=== PATIENT | male | born 1960 | race Caucasian/White ===

== ENCOUNTER → 2017-03-09 | Outpatient (CLI) | payer BC | END | disposition home or self-care (01) | LOC: LABWHC1 09:16 | PROVIDERS: ATTEND Radiology Radiation Oncology | DX: C61 Malignant neoplasm of prostate (principal) | CPT/HCPCS: 36415; 84153 ==

== ENCOUNTER → 2017-08-10 | Outpatient (CLI) | payer BC | END | disposition home or self-care (01) | LOC: LABWHC1 09:54 | PROVIDERS: ATTEND Radiology Radiation Oncology | DX: C61 Malignant neoplasm of prostate (principal) | CPT/HCPCS: 36415; 84153 ==

== ENCOUNTER → 2018-02-26 | Outpatient (CLI) | payer BC | END | disposition home or self-care (01) | LOC: LABWHC1 12:40 | PROVIDERS: ATTEND Radiology Radiation Oncology | DX: C61 Malignant neoplasm of prostate (principal) | CPT/HCPCS: 36415; 84153 ==

== ENCOUNTER → 2018-04-12 | Outpatient (CLI) | payer BC ==
--- NOTE | 2018-04-12 09:14 | CTL ---
EXAMINATION TYPE: CT Low Dose Lung DATE OF EXAM ORDERED: 04/12/2018 COMPARISON: HISTORY: . Low Dose CT Lung Screening CT DLP: 113.[address] CTDI: 3.00 mGy IV CONTRAST USED: None. SCREENING VISIT: First visit COMPARISON: None. TECHNIQUE: Low dose computed tomography scan was performed through the chest at 1 millimeter thick se ctions and reconstructed images in the coronal plane at [address] DIAGNOSTIC QUALITY: Satisfactory FINDINGS: LUNG NODULES: Not present Left lung: no nodules identified. Right lung: no nodules identified. LUNGS: COPD: Severity: None Fibrosis: Severity:None Lymph nodes: None Other findings: None RIGHT PLEURAL SPACE: Effusion: None Calcification: None Thickening: None Pneumothorax: None LEFT PLEURAL SPACE: Effusion: None Calcification: None Thickening: None Pneumothorax: None HEART: Heart Size: Mildly enlarged Coronary calcification: Mild Pericardial effusion: None OTHER FINDINGS: Upper abdomen: No significant abnormality Bony thorax: Degenerative changes Supraclavicular region: No significant abnormalityOther: No significant abnormalityI IMPRESSION: Negative FOLLOW UP CT CHEST RECOMMENDATION: Follow-up screening in one year CT LUNG RAD: LUNG RAD CATEGORY 1 negative
== END | disposition home or self-care (01) ==
LOC: RADCTMAIN 08:36
PROVIDERS: ATTEND Radiology Radiation Oncology
DX: Z12.2 Encounter for screening for malignant neoplasm of respiratory organs (principal); Z87.891 Personal history of nicotine dependence

== ENCOUNTER → 2018-08-16 | Outpatient (CLI) | payer BC ==
[2018-08-16 10:27] LABS: Basophils # (A) 0.1 k/uL (0-0.2); Basophils % (A) 1 %; Eosinophils # (A) 0.3 k/uL (0-0.7); Eosinophils % (A) 5 %; HCT 44.2 % (39.0-53.0); HGB 14.5 gm/dL (13.0-17.5); Lymphocytes # (A) 1.3 k/uL (1.0-4.8); Lymphocytes % (A) 24 %; MCH 28.3 pg (25.0-35.0); MCHC 32.9 g/dL (31.0-37.0); MCV 85.9 fL (80.0-100.0); Mean Platelet Volume 7.8; Monocytes # (A) 0.3 k/uL (0-1.0); Monocytes % (A) 6 %; Neutrophils # (A) 3.4 k/uL (1.3-7.7); Neutrophils % (A) 64 %; Platelet Count 166 k/uL (150-450); RBC 5.15 m/uL (4.30-5.90); RDW 14.1 % (11.5-15.5); WBC 5.3 k/uL (3.8-10.6)
[2018-08-16 18:02] LABS: Anion Gap 10.8 mmol/L (4.00-12.00); Calcium 9.1 mg/dL (8.7-10.3); Carbon Dioxide 23.2 mmol/L (21.6-31.8); Potassium 4.1 mmol/L (3.5-5.5)
== END | disposition home or self-care (01) ==
LOC: LABWHC1 09:43
PROVIDERS: ATTEND Radiology Radiation Oncology
DX: C61 Malignant neoplasm of prostate (principal); Z87.891 Personal history of nicotine dependence; Z92.3 Personal history of irradiation
CPT/HCPCS: 36415; 80048; 84153; 85025

== ENCOUNTER → 2018-09-20 | Outpatient (CLI) | payer BC ==
--- NOTE | 2018-09-20 14:50 | CT ---
EXAMINATION TYPE: CT urogram wo/w con DATE OF EXAM: 09/20/2018 COMPARISON: None HISTORY: Gross hematuria. CT DLP: 1275.5 mGycm, Automated Exposure Control for Dose Reduction was Utilized. CONTRAST: CT scan of the abdomen and pelvis is performed with oral and without and with IV Contrast, patient in jected with 100ml mL of Isovue 300. FINDINGS: LUNG BASES: No significant abnormality is appreciated. LIVER/GB: Too small to accurately characterize hepatic lesion near the fissure for the falciform liga ment as seen on series 6 image 13 that is very hypoattenuated favored to represent a small benign cys t. No cholelithiasis on the unenhanced images PANCREAS: There is severe pancreatic parenchymal atrophy. No ductal dilatation is noted. SPLEEN: No significant abnormality is seen. ADRENALS: No significant abnormality is seen. KIDNEYS: The unenhanced images demonstrate no evidence of nephrolithiasis or hydronephrosis. Kidneys enhance symmetrically and excrete symmetrically without identifiable renal mass or uroepithelial thic kening. Only a trace amount of contrast is seen within the incompletely distended urinary bladder, li miting evaluation. BOWEL: No dilated large or small bowel. There is lipomatous hypertrophy of the ileocecal valve. Few c olonic diverticula are present without pericolonic fat stranding. Moderate amount retained colon and stool is seen. Lack of oral contrast limits evaluation of the bowel. Prior ventral hernia repair is n oted over the inferior abdomen. PROSTATE/SEMINAL VESICLES: Prostate gland is slightly heterogenous. LYMPH NODES: No greater than 1cm abdominal or pelvic lymph nodes are appreciated. OSSEOUS STRUCTURES: No significant abnormality is seen. IMPRESSION: No hydronephrosis, nephrolithiasis, or suspicious renal mass. No uroepithelial thickenin g is seen. Urinary bladder is incompletely filled and incompletely distended, suboptimally evaluated.
== END | disposition home or self-care (01) ==
LOC: RADCTMAIN 13:13
PROVIDERS: ATTEND Urology
DX: N32.89 Other specified disorders of bladder (principal)
CPT/HCPCS: 74178; 74400; Q9967

== ENCOUNTER → 2019-02-07 | Outpatient (CLI) | payer BC | END | disposition home or self-care (01) | LOC: LABWHC1 09:42 | PROVIDERS: ATTEND Radiology Radiation Oncology | DX: C61 Malignant neoplasm of prostate (principal); Z79.818 Long term (current) use of other agents affecting estrogen receptors and estrogen levels; Z87.891 Personal history of nicotine dependence; Z92.3 Personal history of irradiation | CPT/HCPCS: 36415; 84153 ==

== ENCOUNTER → 2019-04-25 | Outpatient (CLI) | payer BC ==
--- NOTE | 2019-04-25 08:22 | CTL ---
EXAMINATION TYPE: CT Low Dose Lung DATE OF EXAM ORDERED: 04/25/2019 HISTORY: Long-term tobacco use. Lung cancer screening CT DLP: 62.[address] CTDI: 1.88 mGy Automated exposure control for dose reduction was used. SCREENING VISIT: Second visit COMPARISON: Low-dose lung screening CT April 12, 2018 TECHNIQUE: Low dose computed tomography scan was performed through the chest at 1 mm thick sections a nd reconstructed images in the coronal plane at [address] DIAGNOSTIC QUALITY: Satisfactory FINDINGS: LUNG NODULES: Present, detailed below: There is 4 x 3 mm right upper lobe nodule axial image 73. There is 3 x 3 mm left upper lobe nodule anteriorly axial image 95. In retrospect both were present on prior study coronal series 10 image 30 and 24 respectively LUNGS: COPD: Severity: None Fibrosis: Severity: None Lymph nodes: None Other findings: None BILATERAL PLEURAL SPACE: Effusion: None Calcification: None Thickening: None Pneumothorax: None HEART: Heart Size: Normal Coronary calcification: Minimal Pericardial effusion: None OTHER FINDINGS: Upper abdomen: Fairly severe fatty-replaced atrophy of the pancreas is redemonstrated. Bony thorax: Mild multilevel spurring lower thoracic spine. Supraclavicular region: None. Other: None. IMPRESSION: Stable small nodules. No new enlarging nodules. FOLLOW UP CT CHEST RECOMMENDATION: Annual low-dose lung screening CT CT LUNG RAD: Lung-Rad 2 Benign Appearance or Behavior
== END | disposition home or self-care (01) ==
LOC: RADCTMAIN 07:41
PROVIDERS: ATTEND Radiology Radiation Oncology
DX: Z12.2 Encounter for screening for malignant neoplasm of respiratory organs (principal); R91.1 Solitary pulmonary nodule; Z87.891 Personal history of nicotine dependence

== ENCOUNTER → 2019-08-15 | Outpatient (CLI) | payer BC | END | disposition home or self-care (01) | LOC: LABWHC1 10:49 | PROVIDERS: ATTEND Radiology Radiation Oncology | DX: C61 Malignant neoplasm of prostate (principal); Z87.891 Personal history of nicotine dependence; Z92.3 Personal history of irradiation; Z79.818 Long term (current) use of other agents affecting estrogen receptors and estrogen levels | CPT/HCPCS: 36415; 84153 ==

== ENCOUNTER → 2020-07-02 | Outpatient (CLI) | payer BC ==
--- NOTE | 2020-07-02 13:34 | CTL ---
EXAMINATION TYPE: CT Low Dose Lung DATE OF EXAM ORDERED: 07/02/2020 HISTORY: . Lung cancer screening CT DLP: 97.[address] CTDI: 2.90 mGy Automated exposure control for dose reduction was used. SCREENING VISIT: COMPARISON: 04/25/2019 TECHNIQUE: Low dose computed tomography scan was performed through the chest at 1 mm thick sections a nd reconstructed images in the coronal plane at [address] DIAGNOSTIC QUALITY: Satisfactory FINDINGS: LUNG NODULES: Stable 4 x 3 mm right upper lobe pulmonary nodule. Stable 3 x 3 mm left upper lobe pulmonary nodule. LUNGS: Lungs are clear. No pleural effusion or pneumothorax. No pleural effusion or pneumothorax. No overt failure. Mild emphysematous changes are seen. No pleural thickening or calcification. No pneumothorax. Hypertrophic and degenerative changes spine. Chronic appearing deformity sternum. Heart size is stabl e. No sizable pericardial effusion. Very minimal calcification near the region of the aortic valve. M ild coronary artery calcification. IMPRESSION: 1. Stable sub-5 mm pulmonary nodules bilaterally. CT LUNG RAD AND CT CHEST RECOMMENDATION: Lung-Rad 2 Benign Appearance or Behavior: Continue annual sc reening with LDCT in 12 months.
== END | disposition home or self-care (01) ==
LOC: RADCTMAIN 08:57
PROVIDERS: ATTEND Family Medicine
DX: Z12.2 Encounter for screening for malignant neoplasm of respiratory organs (principal); Z87.891 Personal history of nicotine dependence

== ENCOUNTER → 2020-08-20 | Outpatient (CLI) | payer BC | END | disposition home or self-care (01) | LOC: LABWHC1 09:25 | PROVIDERS: ATTEND Radiology Radiation Oncology | DX: Z08 Encounter for follow-up examination after completed treatment for malignant neoplasm (principal); C61 Malignant neoplasm of prostate; Z85.46 Personal history of malignant neoplasm of prostate; Z79.818 Long term (current) use of other agents affecting estrogen receptors and estrogen levels; Z87.891 Personal history of nicotine dependence; Z92.3 Personal history of irradiation | CPT/HCPCS: 36415; 84153 ==

== ENCOUNTER → 2020-10-25 | Outpatient (CLI) | payer BC ==
--- NOTE | 2020-10-25 14:32 | US ---
EXAMINATION TYPE: US kidneys/renal and bladder DATE OF EXAM: 10/25/2020 COMPARISON: CT urogram September 20, 2018 CLINICAL HISTORY: R31.9 Hematuria. Hematuria x 3 weeks; history of prior cystoscopy x 2. EXAM MEASUREMENTS: Right Kidney: 10.3 x 5.0 x 4.8 cm Left Kidney: 9.9 x 5.2 x 4.8 cm Post Void Residual Volume: 23.0 mL Right Kidney: No hydronephrosis or masses seen Left Kidney: prominent renal pelvis is noted Bladder: hypoechoic area is noted on posterior wall and may be debris vs. scar tissue vs. mass Bilateral Jets seen: yes Normal Post Void Residual: yes Bladder not greatly distended making evaluation for focal masses suboptimal. Eccentric wall thickenin g posterior or deep aspect are present. Bilateral ureteral jets are seen. Both kidneys seen . Prominent left renal pelvis with lower pole calyceal dilatation After voiding min imal residual urine with persistent eccentric wall thickening. IMPRESSION: Persistent suspicious eccentric wall thickening in bladder is concerning in patient with known hematuria. Direct visualization is advised to rule out neoplasm if has not been performed recen tly. Suspicion for new mild left-sided hydronephrosis.
== END | disposition home or self-care (01) ==
LOC: RADUSWWP 08:19
PROVIDERS: ATTEND Urology
DX: R31.9 Hematuria, unspecified (principal)
CPT/HCPCS: 76770

== ENCOUNTER 2020-11-07 02:20 | Emergency (ER) | payer BC ==
--- NOTE | 2020-11-07 02:25 | ED ---
Male Urogenital HPI - General Stated complaint: Urine Retention Time Seen by Provider: 11/07/20 02:25 Source: RN notes reviewed, old records reviewed - History of Present Illness MD Complaint: dysuria, other (hematuria) -: month(s) Location: abdomen Radiation: none Severity: mild Severity scale (1-10): 2 Consistency: constant Improves with: none Worsens with: urination recent surgery Reports: urinary retention, blood in urine - Related Data Home Medications Medication Instructions Recorded Confirmed No Known Home Medications 05/16/16 05/16/16 Allergies Allergy/AdvReac Type Severity Reaction Status Date / Time No Known Allergies Allergy Verified 11/07/20 02:30 Review of Systems ROS Statement: Those systems with pertinent positive or pertinent negative responses have been documented in the HPI. ROS Other: All systems not noted in ROS Statement are negative. Past Medical History Past Medical History: No Reported History History of Any Multi-Drug Resistant Organisms: None Reported Past Surgical History: Hernia Repair, Orthopedic Surgery Additional Past Surgical History / Comment(s): arthoscopy knee, Past Anesthesia/Blood Transfusion Reactions: No Reported Reaction Past Alcohol Use History: Rare Additional Past Alcohol Use History / Comment(s): smoked since age 11 1ppd quit 12/29 Past Drug Use History: None Reported - Past Family History Mother Family Medical History: Diabetes Mellitus General Exam General appearance: alert, in no apparent distress Head exam: Present: atraumatic, normocephalic, normal inspection Eye exam: Present: normal appearance, PERRL, EOMI. Absent: scleral icterus, conjunctival injection, periorbital swelling ENT exam: Present: normal exam, mucous membranes moist Neck exam: Present: normal inspection. Absent: tenderness, meningismus, lymphadenopathy Respiratory exam: Present: normal lung sounds bilaterally. Absent: respiratory distress, wheezes, rales, rhonchi, stridor Cardiovascular Exam: Present: regular rate, normal rhythm, normal heart sounds. Absent: systolic murmur, diastolic murmur, rubs, gallop, clicks GI/Abdominal exam: Present: soft, normal bowel sounds. Absent: distended, tenderness, guarding, rebound, rigid Extremities exam: Present: normal inspection, full ROM, normal capillary refill. Absent: tenderness, pedal edema, joint swelling, calf tenderness Back exam: Present: normal inspection Neurological exam: Present: alert, oriented X3, CN II-XII intact Psychiatric exam: Present: normal affect, normal mood Skin exam: Present: warm, dry, intact, normal color. Absent: rash Course Vital Signs 11/07/20 02:27 Temperature 97.9 F Pulse Rate 111 H Respiratory 18 Rate Blood Pressure 145/81 O2 Sat by Pulse 98 Oximetry Disposition Clinical Impression: Acute retention of urine, Gross hematuria Disposition: HOME SELF-CARE Condition: Good Instructions (If sedation given, give patient instructions): Urinary Tract Infection in Men (ED), Hematuria (ED), Urinary Retention in Men (ED) Is patient prescribed a controlled substance at d/c from ED?: No Referrals: Karen Wu DO [Primary Care Provider] - 1-2 days Augustine Riley MD [STAFF PHYSICIAN] - 1-2 days
[2020-11-07 02:30] VITALS: BP 145/81; PULSE 111; RESP 18; TEMP 97.9
[2020-11-07] MEDS ORDERED: LIDOCAINE URO-JET JELLY 2% 5 ML KIT URETHRAL ONE (03:24)
[2020-11-07] MEDS ORDERED: CIPROFLOXACIN HCL 500 MG TAB PO STA (03:27)
[2020-11-07 03:57] LABS: RBC,Urine >182 /hpf (0-5); WBC,Urine 27 /hpf (0-5)
[2020-11-07 03:58] LABS: Appearance,Urine Bloody (Clear); Color,Urine Red
== END 2020-11-07 03:50 | disposition home or self-care (01) ==
LOC: EC 02:20
DX: R31.0 Gross hematuria (principal); Z87.891 Personal history of nicotine dependence
CPT/HCPCS: 51798; 81001; 87086; 99283

== ENCOUNTER → 2020-11-11 | Outpatient (CLI) | payer BC ==
[2020-11-11 09:20] LABS: Basophils % (A) 1 %; Eosinophils # (A) 0.2 k/uL (0-0.7); Eosinophils % (A) 3 %; HCT 44.9 % (39.0-53.0); HGB 15.6 gm/dL (13.0-17.5); Lymphocytes # (A) 0.9 k/uL (1.0-4.8); Lymphocytes % (A) 15 %; MCH 29.1 pg (25.0-35.0); MCHC 34.7 g/dL (31.0-37.0); MCV 83.9 fL (80.0-100.0); Mean Platelet Volume 8.1; Monocytes # (A) 0.4 k/uL (0-1.0); Monocytes % (A) 6 %; Neutrophils # (A) 4.1 k/uL (1.3-7.7); Neutrophils % (A) 73 %; Platelet Count 173 k/uL (150-450); RBC 5.35 m/uL (4.30-5.90); WBC 5.5 k/uL (3.8-10.6)
[2020-11-11 10:34] LABS: African American GFR (CKD) >90 (>60 ml/min/1.73 sqM); Anion Gap 8 mmol/L; Blood Urea Nitrogen 14 mg/dL (9-20); Calcium 9.2 mg/dL (8.4-10.2); Carbon Dioxide 22 mmol/L (22-30); Chloride 107 mmol/L (98-107); Glucose 140 mg/dL (74-99); Non-African American GFR(CKD) 80 (>60 ml/min/1.73 sqM); Potassium 3.8 mmol/L (3.5-5.1); Sodium 137 mmol/L (137-145)
== END | disposition home or self-care (01) ==
LOC: LABPAT 08:35
PROVIDERS: ATTEND Urology
DX: Z01.812 Encounter for preprocedural laboratory examination (principal); N30.41 Irradiation cystitis with hematuria; D49.4 Neoplasm of unspecified behavior of bladder; R31.1 Benign essential microscopic hematuria
CPT/HCPCS: 36415; 80048; 85025

== ENCOUNTER 2020-11-18 05:37 | Day surgery (SDC) | payer BC ==
[2020-11-12 11:53] VITALS: BMI 27.4
--- NOTE | 2020-11-16 18:44 | P.GSHP ---
History of Present Illness H&P Date: 11/16/20 Chief Complaint: Gross Hematuria The patient is a 60-year-old white male diagnosed with prostate cancer in October 2016. He was treated with androgen deprivation therapy and radiation therapy. His PSA level was 0.1 in June 2020. 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 He now presents back with recurrent gross hematuria. Renal ultrasound shows a prominent left renal pelvis and bladder wall thickening. Cystoscopy shows changes involving the left hemitrigone, which likely represent radiation cystitis though there is some concern of possible urothelial carcinoma. He comes for resection. - Cardiovascular Cardiovascular: Reports high blood pressure - Genitourinary (Male) Genitourinary: Reports hematuria, Denies flank pain Past Medical History Past Medical History: Cancer, Diabetes Mellitus, Hypertension Additional Past Medical History / Comment(s): Hx Prostate Cancer 5-10 yrs ago treated with radiation. "Currently urinating blood and blood clots, thought to be related to hx of radiation for Prostate Cancer." "They say I have Diabetes but I don't take anything for or check any blood sugars." Had Covid Vaccines. History of Any Multi-Drug Resistant Organisms: None Reported Past Surgical History: Hernia Repair, Orthopedic Surgery Additional Past Surgical History / Comment(s): Arthoscopic knee surgery(can't remember which knee). Past Anesthesia/Blood Transfusion Reactions: No Reported Reaction Past Psychological History: No Psychological Hx Reported Smoking Status: Former smoker Past Alcohol Use History: Rare Additional Past Alcohol Use History / Comment(s): Smoked since age 11, 1ppd, quit 12/29. Past Drug Use History: None Reported - Past Family History Mother Family Medical History: Diabetes Mellitus Medications and Allergies Home Medications Medication Instructions Recorded Confirmed Type Ciprofloxacin HCl [Cipro] 500 mg PO BID 11/12/20 11/12/20 History Tamsulosin [Flomax] 0.4 mg PO HS 11/12/20 11/12/20 History amLODIPine BESYLATE 10 mg PO QAM 11/12/20 11/12/20 History lisinopriL 40 mg PO HS 11/12/20 11/12/20 History Allergies Allergy/AdvReac Type Severity Reaction Status Date / Time No Known Allergies Allergy Verified 11/12/20 11:25 Surgical - Exam - General well developed, well nourished, no distress - Respiratory normal respiratory effort - Abdomen Abdomen: soft, non tender, no guarding, no rigid, no rebound - Genitourinary normal penis with no external lesions, testicles non-tender - Psychiatric oriented to time, oriented to person, oriented to place, speech is normal, memory intact Assessment and Plan (1) Gross hematuria Status: Acute Code(s): R31.0 - GROSS HEMATURIA SNOMED Code(s): 046563942 Plan: Cystoscopy, transurethral resection with fulguration of left hemitrigone lesion. The procedure has been reviewed in detail with the patient. He is aware of potential risks, which include anesthesia, persistent bleeding, infection, persistent radiation cystitis, and scarring of the left ureteral orifice.
[~2020-11-18 05:37] MED LIST: DEXAMETHASONE SOD PHOSPHATE 4 MG/ML 1 ML VIAL IV ONE; LACTATED RINGERS 1,000 ML IV SCH; LIDOCAINE 1% (10MG/ML) FOR IV START INTRADERMA PRN; ONDANSETRON 4 MG/2 ML VIAL IVP ONE
[2020-11-18 06:24] LABS: Glucose,Whole Blood 121 mg/dL (75-99)
[2020-11-18] MEDS ORDERED: GLYCOPYRROLATE 0.2 MG/ML 2 ML VIAL ONE (07:37)
[2020-11-18] MEDS ORDERED: LIDOCAINE 1% INJ 10MG/ML (20 ML MDV) ONE (07:37)
[2020-11-18] MEDS ORDERED: MIDAZOLAM 2 MG/2 ML VIAL ONE (07:37)
[2020-11-18] MEDS ORDERED: ROCURONIUM 10 MG/ML (5 ML VIAL) IV ONE (07:37)
[2020-11-18] MEDS ORDERED: fentaNYL (PF) 50 MCG/ML 2 ML AMP ONE (07:37)
[2020-11-18] MEDS ORDERED: NEOSTIGMINE 1 MG/ML 10 ML VIAL ONE (07:37)
[2020-11-18] MEDS ORDERED: PROPOFOL 10 MG/ML 20 ML VIAL IV ONE (07:37)
[2020-11-18] MEDS ORDERED: SUCCINYLCHOLINE CHLORIDE 100 MG/5 ML SYR IV ONE (07:37)
[2020-11-18 08:38] VITALS: TEMP 97.9
--- NOTE | 2020-11-18 08:38 | P.OP ---
Date of Procedure: 11/18/20 Preoperative Diagnosis: Bladder neoplasm, radiation cystitis Postoperative Diagnosis: Same Procedure(s) Performed: Cystoscopy, TURBT (Medium) Anesthesia: CONYA Surgeon: Jered Malave Estimated Blood Loss (ml): 5 IV fluids (ml): 600 Pathology: other (Bladder lesion fragments, left hemitrigone) Condition: stable Disposition: PACU Indications for Procedure: The patient is a 60-year-old white male diagnosed with prostate cancer in October 2016. He was treated with androgen deprivation therapy and radiation therapy. His PSA level was 0.1 in June 2020. 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 He now presents back with recurrent gross hematuria. Renal ultrasound shows a prominent left renal pelvis and bladder wall thickening. Cystoscopy shows changes involving the left hemitrigone, which likely represent radiation cystitis though there is some concern of possible urothelial carcinoma. He comes for resection. Operative Findings: Bladder wall thickening and erythema, left hemitrigone. Description of Procedure: The patient was taken in the operating room and placed in the dorsal lithotomy position, with his legs supported in Ambrocio stirrups. The external genitalia was prepped and draped sterilely. The 25-[place] [employer] resectoscope sheath was introduced into the bladder under direct vision. The urethra appeared normal. The prostatic urethra was unremarkable, showing no evidence of inflammation or obstruction. The bladder was inspected. The right ureteral orifice appeared normal. The left hemitrigone was raised, thickened, and erythematous. The left ureteral orifice was not identified. The focal area of erythema was seen at the posterior bladder dome. Using the bipolar cutting loop, the left hemitrigone was resected. The tissue was thick and dense. Following resection, the left ureteral orifice was identified. It was not dilated. The resection bed was fulgurated, other than the area surrounding the left ureteral orifice. Excellent hemostasis was attained. The resected tissue was saved and sent for pathologic examination. An 18-[place] Perkins catheter was inserted. The return was clear. The patient tolerated the procedure well. He was taken to the recovery room in stable condition.
[2020-11-18 08:48] VITALS: RESP 16
[2020-11-18] MEDS ORDERED: LIDOCAINE 4% CREAM 5 GM TUBE TOPICAL ONE (09:36)
[2020-11-18] MEDS ORDERED: IBUPROFEN 200 MG TAB PO ONE (09:42)
[2020-11-18 09:55] VITALS: BP 142/76; PULSE 82
== END 2020-11-18 10:33 | disposition home or self-care (01) ==
LOC: OR 05:37
PROVIDERS: ATTEND Urology
DX: N30.41 Irradiation cystitis with hematuria (principal); Z85.46 Personal history of malignant neoplasm of prostate; I10 Essential (primary) hypertension; Z87.891 Personal history of nicotine dependence; Z98.890 Other specified postprocedural states; Z83.3 Family history of diabetes mellitus; Z79.899 Other long term (current) drug therapy; R73.03 Prediabetes
CPT/HCPCS: 52235; 88307; J2250; J1100; J2710; J2405; J0690; J2001; J3010; J0330; J2704

== ENCOUNTER → 2020-12-23 | Outpatient (CLI) | payer BC ==
--- NOTE | 2020-12-23 09:29 | US ---
EXAMINATION TYPE: US kidneys/renal and bladder DATE OF EXAM: 12/23/2020 COMPARISON: 10/14/2020 CLINICAL HISTORY: N13.30 Unspecified hydronephrosis. EXAM MEASUREMENTS: Right Kidney: 10.7 x 4.6 x 4.6 cm Left Kidney: 10.4 x 4.4 x 4.8 cm Right Kidney: mild hydronephrosis Left Kidney: mild hydronephrosis Bladder: wnl IMPRESSION: 1. Mild bilateral hydronephrosis. No ultrasound abnormality to account for this finding is evident.
== END | disposition home or self-care (01) ==
LOC: RADUSWWP 08:24
PROVIDERS: ATTEND Urology
DX: N13.30 Unspecified hydronephrosis (principal)
CPT/HCPCS: 76770

== ENCOUNTER → 2021-01-28 | Outpatient (CLI) | payer BC ==
--- NOTE | 2021-01-28 09:34 | US ---
EXAMINATION TYPE: US kidneys/renal and bladder DATE OF EXAM: 01/28/2021 COMPARISON: US CLINICAL HISTORY: N13.30 Hydronephrosis. F/U prior EXAM MEASUREMENTS: Right Kidney: 10.5 x 5.2 x 4.7 cm Left Kidney: 10.4 x 4.8 x 4.5 cm Right Kidney: Appeared wnl, prior mild hydro appeared to have resolved Left Kidney: Appeared wnl, prior mild hydro appeared to have resolved Bladder: Unable to evaluate properly- Per Dr's order, pt not given prep and bladder was to be empty f or exam There is no evidence for hydronephrosis at this point in time. No nephrolithiasis is seen. No tahir s are identified. IMPRESSION: Interval resolution of bilateral hydronephrosis.
== END | disposition home or self-care (01) ==
LOC: RADUSWWP 08:37
PROVIDERS: ATTEND Urology
DX: Z09 Encounter for follow-up examination after completed treatment for conditions other than malignant neoplasm (principal)
CPT/HCPCS: 76770

== ENCOUNTER → 2021-07-01 | Outpatient (CLI) | payer BC ==
--- NOTE | 2021-07-01 09:02 | CTL ---
EXAMINATION TYPE: CT Low Dose Lung DATE OF EXAM ORDERED: 07/01/2021 HISTORY: Long-term tobacco use. Lung cancer screening CT DLP: [address] CTDI: 2.8 mGy Automated exposure control for dose reduction was used. SCREENING VISIT: Third after baseline COMPARISON: Prior studies 2019 through 2018. TECHNIQUE: Low dose computed tomography scan was performed through the chest at 1 mm thick sections a nd reconstructed images in multiple planes at 1 mm and [address] DIAGNOSTIC QUALITY: Satisfactory FINDINGS: LUNG NODULES: Present, detailed below: Stable 3 mm right upper lobe nodule axial image 65. Stable 2 to 3 mm anterior left upper lung nodule axial image 75. No new or enlarging greater than 5 mm pulmonary nodules. LUNGS: COPD: Severity: Mild Fibrosis: Severity: None Lymph nodes: No greater than 1 cm Other findings: None RIGHT PLEURAL SPACE: Effusion: None Calcification: None Thickening: None Pneumothorax: None LEFT PLEURAL SPACE: Effusion: None Calcification: None Thickening: None Pneumothorax: None HEART: Heart Size: Normal Coronary Calcification: Minimal Pericardial Effusion: Normal OTHER FINDINGS: Upper abdomen: Severe fat replaced atrophy pancreas redemonstrated Bony thorax: No suspicious abnormality. Supraclavicular region: No suspicious findings Other: None IMPRESSION: No new or enlarging nodules. CT LUNG RAD AND CT CHEST RECOMMENDATION: Lung-Rad 2 Benign Appearance or Behavior: Continue annual sc reening with LDCT in 12 months. S Modifier (other clinically significant findings): None
== END | disposition home or self-care (01) ==
LOC: RADCTMAIN 07:47
PROVIDERS: ATTEND Radiology Radiation Oncology
DX: Z12.2 Encounter for screening for malignant neoplasm of respiratory organs (principal); Z87.891 Personal history of nicotine dependence
CPT/HCPCS: 71271

== ENCOUNTER → 2021-08-12 | Outpatient (CLI) | payer BC | END | disposition home or self-care (01) | LOC: LABWHC1 09:28 | PROVIDERS: ATTEND Radiology Radiation Oncology | DX: Z08 Encounter for follow-up examination after completed treatment for malignant neoplasm (principal); C61 Malignant neoplasm of prostate; F17.210 Nicotine dependence, cigarettes, uncomplicated; Z85.46 Personal history of malignant neoplasm of prostate; Z92.3 Personal history of irradiation; Z79.818 Long term (current) use of other agents affecting estrogen receptors and estrogen levels | CPT/HCPCS: 36415; 84153 ==

== ENCOUNTER → 2022-07-28 | Outpatient (CLI) | payer BC ==
--- NOTE | 2022-07-28 10:26 | CTL ---
EXAMINATION TYPE: CT Low Dose Lung DATE OF EXAM ORDERED: 07/28/2022 HISTORY: . Lung cancer screening CT DLP: 104.[address] CTDI: 2.9 mGy Automated exposure control for dose reduction was used. SCREENING VISIT: COMPARISON: 07/01/2021 TECHNIQUE: Low dose computed tomography scan was performed through the chest at 1 mm thick sections a nd reconstructed images in multiple planes at 1 mm and [address] DIAGNOSTIC QUALITY: Satisfactory FINDINGS: Stable 3 mm right upper lobe nodule. Stable 2 to 3 mm anterior left upper lung nodule. Mild emphysematous changes are seen. No pleural effusion or pneumothorax. No focal pneumonia subsegme ntal areas of consolidation most typical of Structures of the upper abdomen demonstrate no definite abnormality. Hypertrophic degenerative change of the spine. Chronic appearing deformity of the sternum. Pancreas is atrophic. There are mildly prominent and there is a trace of pericardial fluid. Coronary artery calcification n oted. Aorta normal caliber with mild atherosclerotic changes noted pathologic adenopathy by noncontra st technique. IMPRESSION: 1. Stable sub-5 mm pulmonary nodules which have a benign appearance. 2. Coronary artery calcification. 3. Mild COPD CT LUNG RAD AND CT CHEST RECOMMENDATION: Lung-Rad 2 Benign Appearance or Behavior: Continue annual sc reening with LDCT in 12 months. S Modifier (other clinically significant findings): S
== END | disposition home or self-care (01) ==
LOC: RADCTMAIN 08:44
PROVIDERS: ATTEND Radiology Radiation Oncology
DX: Z12.2 Encounter for screening for malignant neoplasm of respiratory organs (principal); I25.10 Atherosclerotic heart disease of native coronary artery without angina pectoris; J44.9 Chronic obstructive pulmonary disease, unspecified; R91.8 Other nonspecific abnormal finding of lung field; Z87.891 Personal history of nicotine dependence
CPT/HCPCS: 71271

== ENCOUNTER → 2022-08-04 | Outpatient (CLI) | payer BC | END | disposition home or self-care (01) | LOC: LABWHC1 09:37 | PROVIDERS: ATTEND Radiology Radiation Oncology | DX: Z08 Encounter for follow-up examination after completed treatment for malignant neoplasm (principal); F17.210 Nicotine dependence, cigarettes, uncomplicated; Z92.3 Personal history of irradiation; Z79.818 Long term (current) use of other agents affecting estrogen receptors and estrogen levels; Z85.46 Personal history of malignant neoplasm of prostate | CPT/HCPCS: 36415; 84153 ==

== ENCOUNTER → 2023-07-26 | Outpatient (CLI) | payer BC ==
--- NOTE | 2023-08-02 13:17 | CT ---
EXAMINATION TYPE: CT angio abd aorta w/Runoff CT DLP: 1035.1 mGycm, Automated exposure control for dose reduction was used. DATE OF EXAM: 07/26/2023 9:23 AM COMPARISON: CT low dose lung 07/28/2022, CT urogram 09/20/2018. . CLINICAL INDICATION:Male, 63 years old with history of I73.9 PVD; PHH, PVD, Lt calf pain TECHNIQUE: Multiple thin slice sub-millimeter images were obtained after administration of contrast, from the lower chest through the ankles. 3-D reconstructed images and maximum intensity projection i mages were "". CT angio abd aorta w/Runoff CT Contrast: Contrast used:125 mL of Isovue 370 without and with IV Contrast, Oral contrast used: None FINDINGS: CTA Abdomen and pelvis: In the visualized chest the ascending aorta measures 3.1 cm and the descending aorta is 2.4 cm. No si gnificant atherosclerotic plaque or dilatation. Main pulmonary artery measures 2.4 cm, considered wit hin normal limits. Mild mixed atherosclerotic disease of the upper abdominal aorta, becoming moderate moving closer to t he bifurcation. There is no evidence of AAA or dissection. The proximal celiac, superior mesenteric, single left renal artery and 3 right renal arteries show no definite significant narrowing. Infrarena l aorta measures 1.7 cm. The bifurcation is patent. Mild to moderate mixed disease throughout the maria a ateral common and external iliac arteries. No hemodynamically significant stenosis is seen on the rig ht. On the left there is mixed plaque with about 50-60% stenosis seen in the left distal common iliac . The left external iliac is then patent with mild disease throughout. CTA Lower extremities: Right: The [employer] ENG[employer]ER shows mild mixed disease throughout without significant stenosis. The bifurcation is p atent. The profunda femoris is patent. SFA is patent with mild scattered disease in the SFA without s ignificant stenosis. Popliteal artery is patent, with mild disease without significant stenosis. The popliteal bifurcation is patent. Tibioperoneal trunk shows calcification distally without stenosis. T he peroneal and posterior tibial arteries are patent proximally. The peroneal artery becomes diminuti ve and faint, not visualized beyond the mid to distal calf. The posterior tibial is patent through th e ankle. Anterior tibial artery becomes relatively faint and diminutive, but appears to be patent to the ankle. Left: Common femoral artery is patent with mild disease throughout. Bifurcation is patent. Profunda f emoris and SFA are patent. In the mid thigh, the SFA becomes nonopacified/occluded. About a centimete r or so distally, there is reconstitution of the SFA by collateral vessels. The popliteal artery is p atent. Tibioperoneal trunk, GILMER become somewhat diminutive and faint continuing distally, and above t he ankle the peroneal becomes nonopacified the left anterior posterior tibial arteries normally paten t to the ankle. Non-CTA findings: There are some limitations due to the angiographic phase of imaging. LOWER CHEST: Heart size upper limits of normal. Trace pericardial fluid. Mild coronary arterial calci fication. ABDOMEN LIVER: Unremarkable GALLBLADDER AND BILE DUCTS: Unremarkable gallbladder. No biliary ductal dilatation. PANCREAS: Moderate to severe fatty infiltration without acute finding SPLEEN: Unremarkable. ADRENAL GLANDS: Mildly thickened and small nodular appearance of the adrenals, could be due to hyperp lasia and/or adenomatoid changes.. KIDNEYS AND URETERS: Kidneys enhance symmetrically. No evidence of hydronephrosis or visible renal ca lculus. The ureters are unremarkable. Small bilateral renal cortical hypodensities are too small to c haracterize but probably cysts. PELVIS BLADDER: Incompletely distended/collapsed and not well evaluated. REPRODUCTIVE: Prostate measures 3.9 cm. Pelvic phleboliths. ABDOMEN & PELVIS STOMACH AND BOWEL: Stomach and small bowel are nondistended, no evidence of obstruction. The append ix appears within normal limits. There is some stool and gas seen throughout the colon with no focal acute abnormality shown. There looks to be some mural fat deposition in the colon, especially the transverse and descending se gments, which can be seen as the chronic sequela of prior inflammation. No acute inflammatory process is seen. The appendix appears within normal limits. PERITONEUM/RETROPERITONEUM: No evidence of pneumoperitoneum or free fluid. VASCULATURE: As above. Portal veins are enhancing. Splenic vein is patent. LYMPH NODES: No gross evidence for lymphadenopathy. SOFT TISSUE/ABDOMINAL WALL: Postoperative changes likely from herniorrhaphy along the anterior pelvic wall near the inguinal regions. Small fat-containing inguinal and umbilical hernias. MUSCULOSKELETAL: No acute osseous abnormalities. Moderate disc degeneration changes are present throu ghout the thoracolumbar spine. IMPRESSION: * Mild to moderate mixed atherosclerotic disease of the abdominal aorta and branches. * Aorta is patent without significant stenosis or aneurysm. * Focal stenosis in the left external iliac artery with the lumen demonstrating a 50-60% diameter re duction. * Left SFA becomes occluded in the mid to distal thigh for a short segment, then reconstitutes in th e distal thigh. The popliteal artery is then patent. * Below the knee, there is a patent 2-vessel runoff to the ankle bilaterally. * Other chronic and likely incidental findings as above.
== END | disposition home or self-care (01) ==
LOC: RADCTMAIN 08:33
PROVIDERS: ATTEND Surgery
DX: I73.9 Peripheral vascular disease, unspecified (principal); I70.0 Atherosclerosis of aorta; I70.8 Atherosclerosis of other arteries
CPT/HCPCS: 75635; Q9967

== ENCOUNTER → 2023-08-17 | Day surgery (SDC) | payer BC ==
[~2023-08-17] MED LIST changes: -DEXAMETHASONE SOD PHOSPHATE 4 MG/ML 1 ML VIAL IV ONE; +HEPARIN SODIUM 1,000 UN/ML (10ML VL) IV ONE; +IOPAMIDOL-370 100ML BTL INJ ONE; -LACTATED RINGERS 1,000 ML IV SCH; -LIDOCAINE 1% (10MG/ML) FOR IV START INTRADERMA PRN; +LIDOCAINE 1% INJ 10MG/ML (20 ML MDV) SQ ONE; +MIDAZOLAM 2 MG/2 ML VIAL IVP ONE; -ONDANSETRON 4 MG/2 ML VIAL IVP ONE; +PROTAMINE SULFATE 10 MG/ML 5 ML VIAL IV ONE; +SODIUM CHLORIDE 0.9% 1,000 ML IV ONE; +SODIUM CHLORIDE 0.9% 1,000 ML in EMPTY BAG 1 BAG IV ONE; +fentaNYL (PF) 50 MCG/ML 2 ML AMP IVP ONE
[2023-08-17 07:21] LABS: Basophils # (A) 0.1 k/uL (0-0.2); Basophils % (A) 1 %; Eosinophils # (A) 0.4 k/uL (0-0.7); Eosinophils % (A) 6 %; HCT 48.3 % (39.0-53.0); HGB 16.6 gm/dL (13.0-17.5); Lymphocytes # (A) 1.6 k/uL (1.0-4.8); Lymphocytes % (A) 22 %; MCH 30.2 pg (25.0-35.0); MCHC 34.3 g/dL (31.0-37.0); Mean Platelet Volume 8.9; Monocytes # (A) 0.5 k/uL (0-1.0); Monocytes % (A) 6 %; Neutrophils # (A) 4.5 k/uL (1.3-7.7); Neutrophils % (A) 63 %; Platelet Count 171 k/uL (150-450); RBC 5.49 m/uL (4.30-5.90); RDW 14.1 % (11.5-15.5); WBC 7.1 k/uL (3.8-10.6)
[2023-08-17 07:39] LABS: African American GFR (CKD) 81 (>60 ml/min/1.73 sqM); Anion Gap 6 mmol/L; Blood Urea Nitrogen 19 mg/dL (9-20); Calcium 9.2 mg/dL (8.4-10.2); Carbon Dioxide 19 mmol/L (22-30); Chloride 116 mmol/L (98-107); Glucose 127 mg/dL (74-99); Non-African American GFR(CKD) 70 (>60 ml/min/1.73 sqM); Potassium 4.4 mmol/L (3.5-5.1); Sodium 141 mmol/L (137-145)
[2023-08-17 07:40] VITALS: RESP 16; TEMP 98.4
--- NOTE | 2023-08-17 12:26 | IR ---
EXAMINATION TYPE: IR uniform force captain femoral popliteal Intraoperative/procedural fluoroscopic services were provi ded. CLINICAL INDICATION:Male, 63 years old with history of left leg pain, 8min fluoro, 14.1158Inbv2; , PH H Total fluoroscopy time is 8 min. DAP: Routine 0.832 Gycm2 Please see the operative/procedural note for further details.
--- NOTE | 2023-08-17 13:23 | P.OP ---
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 Postoperative Diagnosis: Same. Procedure(s) Performed: 1: Ultrasound-guided cannulation right common femoral artery. 2: Selective catheterization contralateral superficial femoral artery. 3: Left femoral angiogram. 4: Atherectomy left superficial femoral artery with balloon dilation utilizing drug-eluting balloon. Anesthesia: local (With moderate conscious sedation.) Surgeon: Khoa Cardenas Estimated Blood Loss (ml): 10 Pathology: none sent Condition: stable Disposition: no change Indications for Procedure: Patient is a 63-year-old male with a history of tobacco use who presented with a chief complaint of left calf claudication which he describes as lifestyle limiting. Workup including a CTA demonstrated SFA occlusion at the adductor canal with adequate distal runoff. We discussed continued medical management versus attempt at percutaneous revascularization. The procedure, risk and benefits were discussed with the patient. Patient wished to proceed. Consent form was signed. Description of Procedure: Patient was brought to the special procedure suite. Both groins were sterilely prepped draped in usual manner. Patient received 1 mg of Versed and 50 mcg of fentanyl via the intravenous route for moderate conscious sedation purposes. Utilizing ultrasound the right common femoral artery was identified. 1% Xylocaine was utilized for local anesthesia tissues overlying the femoral artery. Through this anesthetized area with the aid of ultrasound a multipurpose needle was utilized to cannulate the artery. Once cannulated soft tipped guidewire was advanced in the artery. The needle was withdrawn and a 6 [place] sheath was placed. Pigtail catheter in guidewire combination were utilized to cannulate the origin of the left common iliac artery. Left iliac angiogram was performed. Once adequate films were obtained the pigtail was exchanged for an angled glide catheter which was then positioned in the proximal SFA. Left femoral angiogram was performed. This demonstrated the previously identified occlusion. [place] advantage guidewire and the angled glide catheter were utilized in combination to cross the lesion. The angled glide catheter was exchanged for a 6 Nepalese up and over catheter. The patient was systemically heparinized with 3500 units of heparin. The glide catheter was readvanced over the guidewire past the level of the occlusion. The Glidewire was exchanged for an 014 wire. Over the wire a silver Hawk atherectomy device was advanced and utilized to perform atherectomy of the atherosclerotic segment of the SFA. Completion angiogram demonstrated good cosmetic results. Subsequently a 5 mm x 40 mm drug-eluting balloon was selected and utilized to balloon angioplasty the atherectomized segment. Completion angiogram demonstrated good cosmetic result with no evidence of dissection or other pathology. With the above findings noted all wires and sheaths were removed and pressure was held at the puncture site until all evidence of bleeding ceased. Patient tolerated the procedure well and was taken to the outpatient area in satisfactory and stable condition. Total fluoroscopy: 8.0 minutes. Moderate conscious sedation time: 39 minutes. Total contrast volume: 25 mL of Isovue-370. Plan - Discharge Summary Discharge Rx Participant: No New Discharge Prescriptions: No Action amLODIPine BESYLATE 10 mg PO QAM Aspirin 81 mg PO HS Indomethacin [Indocin] 50 mg PO DIRECTED PRN PRN Reason: gout lisinopriL 40 mg PO HS Atorvastatin [Lipitor] 20 mg PO DAILY Discharge Medication List amLODIPine BESYLATE 10 mg PO QAM 11/12/20 [History] lisinopriL 40 mg PO HS 11/12/20 [History] Aspirin 81 mg PO HS 08/13/23 [History] Atorvastatin [Lipitor] 20 mg PO DAILY 08/13/23 [History] Indomethacin [Indocin] 50 mg PO DIRECTED PRN 08/13/23 [History]
[2023-08-17 17:26] VITALS: BP 130/74; PULSE 58
== END ==
LOC: CATHCVL 06:20
PROVIDERS: ATTEND Surgery
DX: I73.9 Peripheral vascular disease, unspecified (principal); M10.9 Gout, unspecified; Z79.82 Long term (current) use of aspirin; Z79.899 Other long term (current) drug therapy; Z87.891 Personal history of nicotine dependence
CPT/HCPCS: 37225; 76937; 80048; 85025; C1894 ×2; C1769 ×5; C1714; C2623; J2250; J2720; J2001; J3010; J1644; Q9967

== ENCOUNTER → 2024-05-23 | Outpatient (CLI) | payer BC ==
--- NOTE | 2024-05-23 11:19 | MR ---
EXAMINATION TYPE: MR brain wo/w con DATE OF EXAM: 05/23/2024 COMPARISON: None HISTORY: Involuntary tremor of head, hx prostate cancer. TECHNIQUE: Multiplanar, multisequence images of the brain and brainstem is performed without and with IV contras t, utilizing 7 mL intravenous Gadobutrol . FINDINGS: Diffusion weighted images demonstrate no evidence of a recent infarct or other diffusion ab normality. There is no extra-axial fluid collection or significant white matter signal abnormality. A mild generalized degenerative change of the greater frontal lobe component. Craniocervical junction maintained. Midline structures demonstrate normal morphology. The craniocervical junction appears w ithin normal limits. Post contrast images demonstrate no abnormal enhancement. The dural venous sinu ses appear patent. Changes of chronic sinusitis. Orbits are symmetric. There is a prominent cisterna magna. IMPRESSION: 1. No acute process. 2. Moderate chronic sinusitis. [facility], , 05/23/2024 11:16 AM
== END | disposition home or self-care (01) ==
LOC: RADMRIMAIN 09:36
PROVIDERS: ATTEND Family Medicine
DX: G25.2 Other specified forms of tremor (principal); J32.9 Chronic sinusitis, unspecified; Z85.46 Personal history of malignant neoplasm of prostate
CPT/HCPCS: 70553; A9585

== ENCOUNTER → 2024-08-08 | Outpatient (CLI) | payer BC ==
[~2024-08-08] MED LIST changes: -HEPARIN SODIUM 1,000 UN/ML (10ML VL) IV ONE; +IODINE/POTASSIUM IODIDE 14 ML BOTTLE ONE; -IOPAMIDOL-370 100ML BTL INJ ONE; -LIDOCAINE 1% INJ 10MG/ML (20 ML MDV) SQ ONE; -MIDAZOLAM 2 MG/2 ML VIAL IVP ONE; -PROTAMINE SULFATE 10 MG/ML 5 ML VIAL IV ONE; -SODIUM CHLORIDE 0.9% 1,000 ML IV ONE; -SODIUM CHLORIDE 0.9% 1,000 ML in EMPTY BAG 1 BAG IV ONE; -fentaNYL (PF) 50 MCG/ML 2 ML AMP IVP ONE
--- NOTE | 2024-08-09 11:27 | NM ---
EXAMINATION TYPE: NM DatScan Brain SPECT DATE OF EXAM: 08/08/2024 COMPARISON: MR brain 05/23/2024 CLINICAL INDICATION: Male, 64 years old with history of G25.2 OTHER SPECIFIED FORMS OF TREMOR; TECHNIQUE: 10 drops of Lugol's solution was administered 1 hour prior to injection as a thyroid bloc dmitri agent. After the administration of 4.5 mCi I-123 Ioflupane DaTscan. Images obtained [address] injection. SPECT images of the brain were acquired with axial and coronal reconstructions. FINDINGS: The uptake of radiotracer within the patient's caudate nuclei and putamina is symmetric and crescent- shaped. IMPRESSION: There is no scintigraphic evidence of a neurodegenerative disorder (Parkinson's disease, Multisystem atrophy or Progressive supranuclear palsy), as there is symmetric uptake of I-123 Ioflupan (DaTscan) within the caudate nuclei and putamina. [facility], , 08/09/2024 11:25 AM
== END | disposition home or self-care (01) ==
LOC: RADNMMAIN 09:47
PROVIDERS: ATTEND Family Medicine
DX: G25.2 Other specified forms of tremor (principal)
CPT/HCPCS: 78803; A9584